=== PATIENT | male | born 1950 | race Caucasian/White ===

== ENCOUNTER 2017-11-14 06:07 | Day surgery (SDC) | payer OTHER ==
[2017-11-14] MEDS ORDERED: Phenylephrine 10 mg/ml Inj ONE ×2 (07:56→07:59)
[2017-11-14] MEDS ORDERED: Propofol 10 mg/ml Inj (20 ML) ONE (07:56)
--- NOTE | 2017-11-14 07:58 | CP.SDSHP ---
Same Day Surgery H & P - History Proposed Procedure: EGD Pre-Op Diagnosis: SEE NOTES - Previous Medical/Surgical History Neuro: Backaches Misc: Other Pain: 4.Moderate Pain - Allergies Allergies: Allergies No Known Allergies Allergy (Verified 11/14/17 06:33) - Physical Exam General Appearance: N Vital Signs: Vital Signs 11/14/17 06:35 Temperature 97.1 F L Pulse Rate 91 H Respiratory 18 Rate Blood Pressure 117/97 H O2 Sat by Pulse 98 Oximetry Mental Status: Alert & Oriented x3 Neuro: Other Heart: WNL Lungs: WNL GI: Other - {Optional Preform as Required} Breast: WNL Abdomen: Other Rectal: Other Integument: WNL : WNL Ortho: Other ENT: WNL - Impression Pt. Evaluated Today:Candidate for Anesthesia & Procedure: Yes - Date & Time Time: 07:57 Short Stay Discharge - Short Stay Discharge Admitting Diagnosis/Reason for Visit: FUNCTIONAL DYSPEPSIA Disposition: HOME/ ROUTINE
[2017-11-14] MEDS ORDERED: Lactated Ringer's 500 ML IV ONE (08:05)
[2017-11-14] MEDS ORDERED: Belladonna-Phenobarbital PO ONE (08:15)
[2017-11-14 10:04] VITALS: O2SAT 97
[2017-11-14 10:08] VITALS: BP 127/88; PULSE 80; RESP 20
== END 2017-11-14 09:25 | disposition home or self-care (01) ==
LOC: C.ENDO 06:07
PROVIDERS: ATTEND Specialist
DX: K44.9 Diaphragmatic hernia without obstruction or gangrene (principal); K29.80 Duodenitis without bleeding; K30 Functional dyspepsia
CPT/HCPCS: 43239; 88305; J2001; J2370; J2704; J7120

== ENCOUNTER 2017-11-21 06:39 | Day surgery (SDC) | payer OTHER ==
[2017-11-21] MEDS ORDERED: Propofol 10 mg/ml Inj (20 ML) ONE ×2 (07:23→07:52)
--- NOTE | 2017-11-21 07:56 | CP.SDSHP ---
Same Day Surgery H & P - History Proposed Procedure: COLONSCOPY Pre-Op Diagnosis: SEE NOTES - Previous Medical/Surgical History Neuro: Backaches, Other Misc: Other Pain: 4.Moderate Pain - Allergies Allergies: Allergies No Known Allergies Allergy (Verified 11/14/17 06:33) - Physical Exam General Appearance: N Vital Signs: Vital Signs 11/21/17 06:48 Temperature 97 F L Pulse Rate 75 Respiratory 19 Rate Blood Pressure 123/89 O2 Sat by Pulse 98 Oximetry Mental Status: Alert & Oriented x3 Neuro: Other Heart: WNL Lungs: WNL Social History: Alcohol - {Optional Preform as Required} Breast: WNL Abdomen: Other Rectal: Other Integument: WNL : WNL Ortho: Other ENT: WNL - Impression Pt. Evaluated Today:Candidate for Anesthesia & Procedure: Yes - Date & Time Time: 07:56 Short Stay Discharge - Short Stay Discharge Admitting Diagnosis/Reason for Visit: ABDOMINAL PAIN, CHANGE OF BOWEL MOVEMENT Disposition: HOME/ ROUTINE
[2017-11-21] MEDS ORDERED: Belladonna-Phenobarbital PO STA (07:57)
[2017-11-21] MEDS ORDERED: Lactated Ringer's 1,000 ML IV ONE (08:00)
[2017-11-21 08:26] VITALS: TEMP 96.9
[2017-11-21 08:54] VITALS: O2SAT 100
[2017-11-21 10:13] VITALS: BP 116/76; PULSE 62; RESP 19
== END 2017-11-21 09:30 | disposition home or self-care (01) ==
LOC: C.ENDO 06:39
PROVIDERS: ATTEND Specialist
DX: K57.30 Diverticulosis of large intestine without perforation or abscess without bleeding (principal); R19.4 Change in bowel habit; K64.8 Other hemorrhoids; K52.9 Noninfective gastroenteritis and colitis, unspecified
CPT/HCPCS: 45380; 88305; J2704; J7120

== ENCOUNTER 2018-02-21 09:19 | Inpatient (IN) | payer OTHER ==
[2018-02-21] MEDS ORDERED: Sodium Chloride 0.9% 1,000 ML IV ONE (10:00)
[2018-02-21 10:19] LABS: BASO % 0.6 % (0.0-2.0); EOS # 0.3 K/uL (0.0-0.7); EOS % 4.4 % (0.0-4.0); HEMOGLOBIN 15.6 g/dL (12.0-18.0); LYMPH % 30.7 % (20.0-40.0); MEAN CELL VOLUME 84.3 fL (80.0-94.0); MEAN CORPUSCULAR HEMOGLOBIN 28.9 pg (27.0-31.0); MEAN CORPUSCULAR HGB CONC 34.3 g/dL (33.0-37.0); MEAN PLATELET VOLUME 9.2 fL (7.2-11.7); MONO # 0.7 K/uL (0.0-0.8); MONO % 11.1 % (0.0-10.0); NEUT # 3.4 K/uL (1.8-7.0); NEUT % 53.2 % (50.0-75.0); RBC 5.4 Mil/uL (4.40-5.90); WHITE BLOOD COUNT 6.4 K/uL (4.8-10.8)
[2018-02-21 10:26] LABS: PROTHROMBIN TIME 11.2 SECONDS (9.7-12.2)
[2018-02-21 10:27] LABS: URINE BILIRUBIN NEGATIVE (NEGATIVE); URINE BLOOD NEGATIVE (NEGATIVE); URINE CLARITY Clear (Clear); URINE COLOR Yellow (YELLOW); URINE GLUCOSE (UA) NORMAL (Normal); URINE LEUKOCYTE ESTERASE NEG Leu/uL (Negative); URINE PROTEIN NEGATIVE (NEGATIVE); URINE UROBILINOGEN NORMAL mg/dL (0.2-1.0)
[2018-02-21] MEDS ORDERED: Sodium Chloride 0.9% 1,000 ML ONE (10:33)
[2018-02-21 10:35] LABS: ALB/GLOB RATIO 1.5 (1.0-2.1); ALBUMIN 4.3 g/dL (3.5-5.0); ALT/SGPT 57 U/L (21-72); AST/SGOT 37 U/L (17-59); BLOOD UREA NITROGEN 10 mg/dL (9-20); CALCIUM 9.6 mg/dl (8.6-10.4); GFR NON-AFRICAN AMERICAN > 60; LIPASE 55 U/L (23-300)
--- NOTE | 2018-02-21 10:38 | C.PDOC ---
History Of Present Illness 67 year old male with no medical history was sent by PMD for evaluation of right upper quadrant abdominal pain for 1 month. Patient states he is scheduled for gallbladder surgery today in the afternoon. PMD Dr. Dey. Denies vomiting, nausea, fever, chills, and any other associated symptoms. Time Seen by Provider: 02/21/18 09:30 Chief Complaint (Nursing): Abdominal Pain History Per: Patient History/Exam Limitations: no limitations Onset/Duration Of Symptoms: Days Current Symptoms Are (Timing): Still Present Past Medical History Reviewed: Historical Data, Nursing Documentation, Vital Signs Vital Signs: Last Vital Signs Temp 98.5 F 02/21/18 09:43 Pulse 73 02/21/18 09:43 Resp 18 02/21/18 09:43 BP 135/87 02/21/18 09:43 Pulse Ox 98 02/21/18 09:43 - Medical History PMH: Gastritis Denies: Chronic Kidney Disease Surgical History: Endoscopy Family History: States: Unknown Family Hx - Social History Hx Alcohol Use: No Hx Substance Use: No - Immunization History Hx Tetanus Toxoid Vaccination: No Hx Influenza Vaccination: No Hx Pneumococcal Vaccination: No Review Of Systems Except As Marked, All Systems Reviewed And Found Negative. Constitutional: Negative for: Fever, Chills Gastrointestinal: Positive for: Abdominal Pain (right upper quadrant. ). Negative for: Nausea, Vomiting Physical Exam - Physical Exam Appears: Well, Non-toxic, No Acute Distress Skin: Normal Color, Warm, Dry Head: Atraumatic, Normacephalic Eye(s): bilateral: Normal Inspection Oral Mucosa: Moist Neck: Normal ROM, Supple Respiratory: Normal Breath Sounds, No Rales, No Rhonchi, No Wheezing Gastrointestinal/Abdominal: Normal Exam, Soft, No Tenderness, No Distention, No Guarding, No Rebound Neurological/Psych: Oriented x3, Normal Speech ED Course And Treatment - Laboratory Results Result Diagrams: 02/21/18 10:13 02/21/18 10:13 Lab Interpretation: Normal ECG: Interpreted By Me ECG Rhythm: Sinus Rhythm ECG Interpretation: No Acute Changes Rate From EC O2 Sat by Pulse Oximetry: 98 (RA) Pulse Ox Interpretation: Normal - Radiology CXR: Interpreted by Me CXR Interpretation: Yes: No Acute Disease - Other Rad CXR X-Ray: Viewed By Me, Read By Radiologist Interpretation: FINDINGS: LUNGS: No active pulmonary disease. PLEURA: No significant pleural effusion identified. No pneumothorax apparent. CARDIOVASCULAR: No aortic atherosclerotic calcification present. No radiographic findings to suggest acute or significant cardiovascular disease. OSSEOUS STRUCTURES: No significant abnormalities. VISUALIZED UPPER ABDOMEN: Normal. OTHER FINDINGS: None. IMPRESSION: No active disease. Reassessment Condition: Unchanged - Physician Consult Information Physician Contacted: Sriram Crane Outcome Of Conversation: admit Medical Decision Making Medical Decision Making: Plan: --Blood sent --EKG--CXR--Urinalysis Progress/Update: Spoke with Dr. Crane 10:26am who agreed to admit the patient. Patient sent for prop-labs, scheduled for surgery today at noon. Patient stable for discharge home. Disposition Discussed With .: Sriram Crane Doctor Will See Patient In The: Hospital - Disposition Disposition: HOSPITALIZED Disposition Time: 11:00 Condition: STABLE - POA Present On Arrival: None - Clinical Impression Clinical Impression: Abdominal pain, Cholecystitis - PA / THREAD GRINDER / Resident Statement MD/DO has reviewed & agrees with the documentation as recorded. - Scribe Statement The provider has reviewed the documentation as recorded by the Scribe (Elizabeth Thomas) All medical record entries made by the Scribe were at my direction and personally dictated by me. I have reviewed the chart and agree that the record accurately reflects my personal performance of the history, physical exam, medical decision making, and the department course for this patient. I have also personally directed, reviewed, and agree with the discharge instructions and disposition. Decision To Admit - Pt Status Changed To: Hospital Disposition Of: Inpatient - Admit Certification Admit to Inpatient:: After my assessment, the patient will require hospitalization for at least two midnights. This is because of the severity of symptoms shown, intensity of services needed, and/or the medical risk in this patient being treated as an outpatient. - InPatient: Physician Admission Certification:: Cholecyctitis - . Bed Request Type: Regular Admitting Physician: Sriram Crane Patient Diagnosis: Abdominal pain, Cholecystitis
--- NOTE | 2018-02-21 13:00 | RAD ---
Date of service: 02/21/2018 HISTORY: SOB COMPARISON: With go none TECHNIQUE: Chest PA and lateral FINDINGS: LUNGS: No active pulmonary disease. PLEURA: No significant pleural effusion identified. No pneumothorax apparent. CARDIOVASCULAR: No aortic atherosclerotic calcification present No radiographic findings to suggest acute or significant cardiovascular disease. OSSEOUS STRUCTURES: No significant abnormalities. VISUALIZED UPPER ABDOMEN: Normal. OTHER FINDINGS: None. IMPRESSION: No active disease.
[2018-02-21] MEDS ORDERED: Midazolam 2 MG/2 ML VIAL ONE (15:48)
[2018-02-21] MEDS ORDERED: Lidocaine Hydrochloride 0 ML INJ ONE (15:49)
[2018-02-21] MEDS ORDERED: Propofol 10 mg/ml Inj (20 ML) ONE (15:49)
[2018-02-21] MEDS ORDERED: Rocuronium 10 mg/ml (5 ml) ONE (15:51)
[2018-02-21] MEDS ORDERED: ceFAZolin 1 gm FROZEN Premix 2 GM/100 ML ML IVPB ONE (15:57)
[2018-02-21] MEDS ORDERED: Esmolol 100 mg/10ml Inj IV ONE (16:31)
[2018-02-21] MEDS ORDERED: Phenylephrine 10 mg/ml Inj ONE (16:43)
[2018-02-21] MEDS ORDERED: Neostigmine Methylsulfate 3mg/3ml Syringe IV ONE (16:52)
[2018-02-21] MEDS ORDERED: Pneumococcal 23-Valent Vaccine IM ONE (17:03)
[2018-02-21] MEDS ORDERED: Oxycodone/Acetaminophen 5/325 mg Tab PO PRN (17:03)
[2018-02-21] MEDS ORDERED: HYDROmorphone 0.5 mg/0.5 ml ISec IVP PRN (17:14)
[2018-02-21] MEDS: HYDROmorphone 0.5 mg/0.5 ml ISec IVP PRN ×3 (17:42→18:13)
--- NOTE | 2018-02-21 18:09 | CP.PCM.PN ---
Subjective - Date & Time of Evaluation Date of Evaluation: 02/21/18 Time of Evaluation: 13:00 - Subjective Subjective: This patient is a 67 year old male with no significant past medical history who was sent by Dr. Dye for elective cholecystectomy. Patient has been complaining of abdominal pain x 1 month without radiation that is worse with food. ROS POSITIVES: RUQ abdominal Pain NEGATIVES: Fever, chills, Shortness of breath, chest pain, palpitations, nausea, vomiting, diarrhea, constipation, urinary symptoms. PMHx: Denies PSHx: lung cyst removal over 40 years ago Allergies: NKDA SocialHx: Denies tobacco, EtoH, or illicit drug use Hos: Denies FamHx: Denies Meds: None Objective - Vital Signs/Intake and Output Vital Signs (last 24 hours): Temp Pulse Resp BP Pulse Ox 97.8 F 81 13 132/93 H 100 02/21/18 17:09 02/21/18 18:00 02/21/18 18:00 02/21/18 18:00 02/21/18 18:00 Intake and Output: 02/21/18 02/21/18 06:59 18:59 Intake Total 1100 Balance 1100 - Medications Medications: Current Medications Docusate Sodium (Colace) 100 mg PO BID [facility]INA Enoxaparin Sodium (Lovenox) 30 mg SC DAILY [facility] Hydromorphone HCl (Dilaudid) 0.5 mg IVP Q10M PRN PRN Reason: Pain, moderate (4-7) Stop: 02/21/18 19:00 Last Admin: 02/21/18 17:45 Dose: 0.5 mg Dextrose/Sodium Chloride (Dextrose 5%/0.45% Ns 1000 Ml) 1,000 mls @ 80 mls/hr IV .[id number] [facility] Cefazolin Sodium/Dextrose (Ancef Iv 1 Gm Duplex) 1 gm in 50 mls @ 100 mls/hr IVPB Q8H [facility]; Protocol Ondansetron HCl (Zofran Inj) 4 mg IVP Q6 PRN PRN Reason: Nausea/Vomiting Oxycodone/Acetaminophen (Percocet 5/325 Mg Tab) 2 tab PO Q4H PRN PRN Reason: pain Stop: 02/24/18 17:04 Pantoprazole Sodium (Protonix Inj) 40 mg IVP DAILY [facility] - Labs Labs: 02/21/18 10:13 02/21/18 10:13 PT 11.2 SECONDS (9.7-12.2) 02/21/18 10:13 INR 1.0 02/21/18 10:13 - Constitutional Appears: Well, Non-toxic, No Acute Distress - Head Exam Head Exam: ATRAUMATIC, NORMAL INSPECTION, NORMOCEPHALIC - Eye Exam Eye Exam: EOMI, Normal appearance. absent: Scleral icterus - ENT Exam ENT Exam: Mucous Membranes Moist - Respiratory Exam Respiratory Exam: Clear to Ausculation Bilateral, NORMAL BREATHING PATTERN. absent: Accessory Muscle Use - Cardiovascular Exam Cardiovascular Exam: RRR, +S1, +S2 - GI/Abdominal Exam GI & Abdominal Exam: Soft, Tenderness (RUQ), Normal Bowel Sounds. absent: Distended, Firm, Guarding, Rigid, Organomegaly, Rebound Additional comments: Negative Harper's sign. - Extremities Exam Extremities Exam: Normal Capillary Refill. absent: Pedal Edema - Neurological Exam Neurological Exam: Alert, Awake, Oriented x3 - Psychiatric Exam Psychiatric exam: Normal Affect, Normal Mood - Skin Skin Exam: Dry, Intact, Normal Color, Warm Assessment and Plan - Assessment and Plan (Free Text) Assessment: 67 year old male with no significant past medical history who was sent by Dr. Pina for elective cholecystectomy Plan: Acute Cholecystitis PreOp EKG - NSR with no ST or T wave changes PreOp CXR - Negative Cholecystectomy scheduled for today. General Surgery Consulted (Dr. Dey) Meds per General Surgery. Proph Protonix Lovenox. Patient discussed with Dr. Rosa Maria Briggs, PGY-2
[2018-02-21 18:39] VITALS: RESP 20
[2018-02-21] MEDS: Dextrose 5%/0.45% NS 1,000 ML IV SCH (19:00)
[2018-02-21] MEDS: ceFAZolin IV 1 gm in Dextrose 1 GM/50 ML BAG IVPB SCH (21:11)
[2018-02-22] MEDS: ceFAZolin IV 1 gm in Dextrose 1 GM/50 ML BAG IVPB SCH ×2 (01:58→09:31)
--- NOTE | 2018-02-22 02:17 | OP ---
PROCEDURE DATE: 02/21/2018 PREOPERATIVE DIAGNOSIS: Acute on chronic cholecystitis. POSTOPERATIVE DIAGNOSIS: Acute on chronic cholecystitis. PROCEDURE PERFORMED: Laparoscopic cholecystectomy. SURGEON: Isak Dey MD ANESTHESIA: General endotracheal. ESTIMATED BLOOD LOSS: 40 mL. POSTOPERATIVE CONDITION: Stable. INDICATIONS FOR SURGERY: This is a 67-year-old male with a history of chronic gallbladder disease which has been exacerbated, admitted through the emergency room today with diagnosis of cholecystitis for laparoscopic cholecystectomy. GROSS FINDINGS: The gallbladder was mildly inflamed. There was evidence of chronic cholecystitis with adhesions. The anatomy was clearly delineated including the gallbladder, cystic duct, and the cystic duct-common bile duct junction prior to clipping the cystic duct. The cystic duct was noted to be sclerotic. Two branches of the cystic artery were also clipped and divided prior to removing the gallbladder. DESCRIPTION OF PROCEDURE: The patient was taken to the operating room. General anesthesia was administered. The abdomen was prepped and draped. Periumbilical cutdown was performed. An umbilical hernia was encountered. The sac was dissected free and removed. A blunt port was inserted through the umbilical hernia site. The abdomen was insufflated with CO2 and under direct vision, the remaining ports were placed. Gallbladder was retracted. The cystic duct was carefully dissected free. After the anatomy was delineated, the cystic duct was clipped and divided. Cystic artery two branches were identified, clipped and divided. There were some adhesions to the liver bed which caused a complex laceration which was repaired laparoscopically. The gallbladder was then removed from the gallbladder bed using the Bovie. The gallbladder was removed through the epigastric port. The abdomen was irrigated with saline until clear. A Bethel drain was left in the gallbladder bed due to the liver laceration. The ports were removed. The umbilical hernia was closed with interrupted heavy Monocryl suture. The skin was closed with subcuticular Monocryl and glue. The patient tolerated the procedure well and returned to recovery room in stable condition. Isak Dey MD
[2018-02-22] MEDS: Dextrose 5%/0.45% NS 1,000 ML IV SCH ×2 (04:14→05:45)
[2018-02-22 07:51] LABS: BASO % 0.4 % (0.0-2.0); EOS % 0.5 % (0.0-4.0); HEMOGLOBIN 14.3 g/dL (12.0-18.0); LYMPH # 1.6 K/uL (1.0-4.3); LYMPH % 16.3 % (20.0-40.0); MEAN CELL VOLUME 83.9 fL (80.0-94.0); MEAN CORPUSCULAR HEMOGLOBIN 29.4 pg (27.0-31.0); MEAN PLATELET VOLUME 9.5 fL (7.2-11.7); MONO # 0.8 K/uL (0.0-0.8); MONO % 8.4 % (0.0-10.0); NEUT # 7.1 K/uL (1.8-7.0); NEUT % 74.4 % (50.0-75.0); RBC 4.87 Mil/uL (4.40-5.90); RED CELL DISTRIBUTION WIDTH 12.7 % (11.5-14.5); WHITE BLOOD COUNT 9.6 K/uL (4.8-10.8)
[2018-02-22 08:09] VITALS: BP 126/84; PULSE 97; TEMP 99.1; O2SAT 96
[2018-02-22 08:19] LABS: ALB/GLOB RATIO 1.6 (1.0-2.1); ALBUMIN 3.9 g/dL (3.5-5.0); ALT/SGPT 121 U/L (21-72); AST/SGOT 131 U/L (17-59); BLOOD UREA NITROGEN 9 mg/dL (9-20); GFR NON-AFRICAN AMERICAN > 60
[2018-02-22] MEDS ORDERED: Enoxaparin 30 mg Syringe SC SCH (10:00)
--- NOTE | 2018-02-22 10:59 | CP.PCM.PN ---
Subjective - Date & Time of Evaluation Date of Evaluation: 02/22/18 Time of Evaluation: 10:57 - Subjective Subjective: PGY2- Progress note for Dr. Abel's service Patient was seen and examined at bedside in no acute distress. Patient is s/p cholecystectomy, POD#1. Patient has no complaints and reports feeling well. He denies having abdominal pain, nausea, vomiting, fevers, headaches, chest pain, palpitations, dizziness, dysuria, hematuria. He reports his last BM was 3 days ago. Patient tolerated regular diet this morning. Objective - Vital Signs/Intake and Output Vital Signs (last 24 hours): Temp Pulse Resp BP Pulse Ox 99.1 F 97 H 20 126/84 96 02/22/18 08:08 02/22/18 08:08 02/22/18 08:08 02/22/18 08:08 02/22/18 08:08 Intake and Output: 02/22/18 02/22/18 06:59 18:59 Intake Total 1920 Output Total 170 Balance 1750 - Medications Medications: Current Medications Docusate Sodium (Colace) 100 mg PO BID [facility] Last Admin: 02/22/18 09:27 Dose: 100 mg Enoxaparin Sodium (Lovenox) 30 mg SC DAILY [facility] Last Admin: 02/22/18 09:28 Dose: 30 mg Dextrose/Sodium Chloride (Dextrose 5%/0.45% Ns 1000 Ml) 1,000 mls @ 80 mls/hr IV .[id number] [facility] Last Admin: 02/22/18 05:45 Dose: Not Given Cefazolin Sodium/Dextrose (Ancef Iv 1 Gm Duplex) 1 gm in 50 mls @ 100 mls/hr IVPB Q8H [facility]; Protocol Last Admin: 02/22/18 09:31 Dose: 100 mls/hr Ondansetron HCl (Zofran Inj) 4 mg IVP Q6 PRN PRN Reason: Nausea/Vomiting Oxycodone/Acetaminophen (Percocet 5/325 Mg Tab) 2 tab PO Q4H PRN PRN Reason: pain Stop: 02/24/18 17:04 Last Admin: 02/21/18 22:41 Dose: 2 tab Pantoprazole Sodium (Protonix Inj) 40 mg IVP DAILY [facility] Last Admin: 02/22/18 09:28 Dose: 40 mg - Labs Labs: 02/22/18 07:40 02/22/18 07:40 PT 11.2 SECONDS (9.7-12.2) 02/21/18 10:13 INR 1.0 02/21/18 10:13 - Constitutional Appears: No Acute Distress - Head Exam Head Exam: ATRAUMATIC, NORMAL INSPECTION - Eye Exam Eye Exam: EOMI, Normal appearance - ENT Exam ENT Exam: Mucous Membranes Moist - Respiratory Exam Respiratory Exam: Clear to Ausculation Bilateral, NORMAL BREATHING PATTERN. abs ent: Rales, Rhonchi, Wheezes, Respiratory Distress - Cardiovascular Exam Cardiovascular Exam: REGULAR RHYTHM, +S1, +S2 - GI/Abdominal Exam GI & Abdominal Exam: Soft, Normal Bowel Sounds. absent: Tenderness Additional comments: Dressing and joann drain present- clean, dry, intact; serosanguinous output noted. - Extremities Exam Extremities Exam: Normal Inspection. absent: Calf Tenderness, Pedal Edema - Neurological Exam Neurological Exam: Alert, Awake, Oriented x3 - Psychiatric Exam Psychiatric exam: Normal Mood - Skin Skin Exam: Dry, Intact, Normal Color, Warm Assessment and Plan - Assessment and Plan (Free Text) Plan: 67 year old male with no significant past medical history who was sent by Dr. Dey for elective cholecystectomy. Plan: Acute Cholecystitis General Surgery Consulted (Dr. Dey) PreOp EKG - NSR with no ST or T wave changes PreOp CXR - Negative Cholecystectomy performed on 02/21/18 Continue pain management and antibiotics per Dr. Dey. Constipation Colace 100mg PO BID Encouraged increased PO intake and Prune juice Proph Protonix 40mg IV daily Lovenox 30 SC daily Regular Diet Incentive spirometer Encouraged OOB to chair Case discussed with Dr. Abel. All management per Dr. Abel. * Patient scheduled for discharge today, 02/22/18, per Dr. Dey. Patient may take Tylenol or Advil for pain relief. Patient must follow up with surgeon within 1 week of discharge.
[2018-02-22] MEDS ORDERED: Pneumococcal 23-Valent Vaccine IM ONE (11:33)
[2018-02-22] MEDS ORDERED: Influenza Vaccine 60 MCG/0.5 ML SYR (3 yr & up) IM ONE (11:34)
--- NOTE | 2018-02-22 16:48 | PN ---
DATE: 02/22/2018 SUBJECTIVE: The patient is resting comfortably in bed, one day status post laparoscopic cholecystectomy. He is feeling minimal pain and no nausea. He tolerated his regular breakfast this morning. PHYSICAL EXAMINATION: VITAL SIGNS: His temperature is 99, pulse is 95, respiratory rate is 16, and BP is 120/84. ABDOMEN: Pertinent physical findings includes the abdominal exam, which revealed a soft abdomen with mild incisional tenderness around the laparoscopic port sites. The drain is draining serosanguineous fluid in a scant amount. There were no other abnormal findings. LABORATORY DATA: His labs were reviewed and they are basically normal except for mildly elevated liver enzymes consistent with recent laparoscopic cholecystectomy. IMPRESSION AND PLAN: The patient is recovering nicely from his laparoscopic cholecystectomy. He will be discharged today with instructions to follow up with me in one week. Isak Dey MD
--- NOTE | 2018-02-26 08:04 | CARD ---
APPROVED REPORT Date of service: 02/21/2018 EKG Measurement Heart [id number] <Conclusion> Normal sinus rhythm Inferior infarct, age undetermined Abnormal ECG
== END 2018-02-22 12:15 | disposition home or self-care (01) | DRG 407 ==
LOC: C.ER 09:19 → C.3T 10:26
PROVIDERS: ADMIT Internal Medicine Pulmonary Disease; ATTEND Internal Medicine Pulmonary Disease
PROC: 0WQF4ZZ Repair Abdominal Wall, Percutaneous Endoscopic Approach (ICD-10-PCS; 2018-02-21)
PROC: 0FT44ZZ Resection of Gallbladder, Percutaneous Endoscopic Approach (ICD-10-PCS; principal; 2018-02-21 14:30)
PROC: 0FQ04ZZ Repair Liver, Percutaneous Endoscopic Approach (ICD-10-PCS; 2018-02-21 14:30)
DX: K81.2 Acute cholecystitis with chronic cholecystitis (principal); K66.0 Peritoneal adhesions (postprocedural) (postinfection); K42.9 Umbilical hernia without obstruction or gangrene

== ENCOUNTER 2018-08-07 08:34 | Day surgery (SDC) | payer OTHER ==
[2018-08-07 09:04] VITALS: BMI 25.8
[2018-08-07] MEDS ORDERED: Propofol 10 mg/ml Inj (20 ML) ONE (10:53)
--- NOTE | 2018-08-07 10:55 | CP.SDSHP ---
Same Day Surgery H & P - History Proposed Procedure: colonscopy Pre-Op Diagnosis: SEE NOTES - Previous Medical/Surgical History Neuro: Other Misc: Other Pain: 4.Moderate Pain - Allergies Allergies: Allergies No Known Allergies Allergy (Verified 02/21/18 09:36) PER PATIENT - Physical Exam General Appearance: N Vital Signs: Vital Signs 08/07/18 08:39 Temperature 98 F Pulse Rate 69 Respiratory 18 Rate Blood Pressure 133/88 O2 Sat by Pulse 98 Oximetry Mental Status: Alert & Oriented x3 Neuro: WNL Heart: WNL Lungs: WNL GI: Other - {Optional Preform as Required} Breast: WNL Abdomen: Other Rectal: Other Integument: WNL : WNL Ortho: Other ENT: WNL - Impression Pt. Evaluated Today:Candidate for Anesthesia & Procedure: Yes - Date & Time Time: 10:55 Short Stay Discharge - Short Stay Discharge Admitting Diagnosis/Reason for Visit: RECTAL BLEEDING Disposition: HOME/ ROUTINE
[2018-08-07] MEDS ORDERED: Lactated Ringer's 500 ML IV SCH (11:00)
[2018-08-07] MEDS ORDERED: Belladonna-Phenobarbital PO ONE (11:40)
[2018-08-07 11:41] VITALS: TEMP 97.8
[2018-08-07 11:42] VITALS: O2SAT 100
[2018-08-07 12:31] VITALS: BP 123/83; PULSE 89; RESP 20
== END 2018-08-07 12:30 | disposition home or self-care (01) ==
LOC: C.ENDO 08:34
PROVIDERS: ATTEND Specialist
DX: K63.89 Other specified diseases of intestine (principal); K64.8 Other hemorrhoids; K64.4 Residual hemorrhoidal skin tags; K62.5 Hemorrhage of anus and rectum; M54.5 Low back pain; Z90.49 Acquired absence of other specified parts of digestive tract; Z79.899 Other long term (current) drug therapy
CPT/HCPCS: 45380; 88305; J2704; J3010; J7120